=== PATIENT | male | born 1980 | race Caucasian/White ===

== ENCOUNTER 2018-12-26 06:59 | Emergency (ER) | payer MEDICAID, OTHER ==
[~2018-12-26] VITALS: Wt 75.0 kg
[2018-12-26 07:08] VITALS: BP 144/65; PULSE 111; RESP 20
[2018-12-26] MEDS ORDERED: CEPH-443 PO (07:45)
--- NOTE | 2018-12-26 07:45 | ERD ---
ER Documentation Chief Complaint Chief Complaint bib ems cc lac to finger, etoh HPI This is a 38-year-old male who is intoxicated with alcohol. He admits to drinking last night. He said he cut his right dorsal proximal index finger on a plate last night. He is brought in by EMS. The patient is not suicidal or ho micidal. He has his finger bandaged. Does not complain of any numbness or weakness ROS All systems reviewed and are negative except as per history of present illness. Medications Home Meds Active Scripts Cephalexin* (Keflex*) 500 Mg Capsule, 500 MG PO QID for 5 Days, CAP Prov:SATHISH LI DO 12/26/18 FmHx Family History: No coronary disease Physical Exam Vitals Vital Signs Date Temp Pulse Resp B/P (MAP) Pulse Ox O2 O2 Flow FiO2 Time Delivery Rate 12/26/18 97.1 111 20 144/65 99 07:08 (91) Physical Exam Const: No acute distress Head: Atraumatic Eyes: Normal Conjunctiva ENT: Normal External Ears, Nose and Mouth. Neck: Full range of motion. No meningismus. Resp: Clear to auscultation bilaterally Cardio: Regular rate and rhythm, no murmurs Abd: Soft, non tender, non distended. Normal bowel sounds Skin: No petechiae or rashes Back: No midline or flank tenderness Ext: No cyanosis, or edema, the right dorsal proximal middle finger has a small avulsion there is no loss of sensation distally and no decreased range of motion to the digit or evidence of tendon laceration. Neur: Awake and alert Psych: Normal Mood and Affect Results 24 hrs Current Medications Medications Dose Sig/Keanu Start Time Status Last (Trade) Ordered Route PRN Stop Time Admin Dose Reason Admin Lidocaine 20 ml ONCE ONCE 12/26/18 DC (Xylocaine SC 08:00 1% (Mdv) 20 12/26/18 08:01 ml) Procedures/[address] [address] Radiology Main Line: [phone] DIAGNOSTIC IMAGING REPORT Patient: ROCHELLE MCMANUS : 1980 Age: 38 Sex: M MR #: [id number] DOS: 12/26/18 0749 Ordering MD: SATHISH LI DO Location: E/R Room/Bed: PROCEDURE: Right hand x-ray CLINICAL INDICATION: Right hand injury involving the base of the third digit TECHNIQUE: AP, lateral and oblique views of the right hand were obtained. COMPARISON: None FINDINGS: Soft tissue abnormality is seen at the base of the third digit, between the second and third digits on the frontal view, where there is some mottled lucency that may reflect bandaging and / or air in the soft tissues. There is no underlying acute osseous abnormality seen. Alignment is maintained. Joint spaces are maintained without hypertrophic or erosive changes seen. IMPRESSION: Abnormal appearance of the soft tissues at the base of the third digit, including second interspace, presumably a combination of post traumatic and overlying bandaging. There is no underlying acute osseous abnormality. RPTAT: [facility] Physician Leonidas Date Time Electronically viewed and signed by Physician Leonidas on 12/26/2018 08:30 RF/ CC: SATHISH LI DO [id number] Patient only has a an abrasion to his knuckle there is no need to suture anything Departure Diagnosis: Primary Impression: Avulsion, skin Additional Impression: Intoxication Condition: Stable SATHISH LI DO Dec 26, 2018 07:45
[2018-12-26] MEDS ORDERED: LIDOCAINE 1% (MDV) 20 ML INJ SC ONE (08:00)
== END 2018-12-26 09:16 | disposition home or self-care (01) ==
LOC: E/R 06:59
DX: S61.212A Laceration without foreign body of right middle finger without damage to nail, initial encounter (principal); F10.129 Alcohol abuse with intoxication, unspecified; W26.8XXA Contact with other sharp object(s), not elsewhere classified, initial encounter; Y92.9 Unspecified place or not applicable